=== PATIENT | female | born 1960 | race African-American/Black ===

== ENCOUNTER 2018-03-25 18:16 | Emergency (ER) | payer OTHER ==
--- NOTE | 2018-03-25 18:25 | PDOC ---
Rapid Medical Evaluation Time Seen by Provider: 03/25/18 18:22 Medical Evaluation: Allergies Allergy/AdvReac Type Severity Reaction Status Date / Time No Known Allergies Allergy Verified 03/25/18 18:22 03/25/18 18:22 I have performed a brief in-person evaluation of this patient. The patient presents with a chief complaint of: chest pain and cough Pertinent physical exam findings: Lungs CTAB. RRR. No m/r/g. I have ordered the following: labs, urine, cxr, ekg The patient will proceed to the ED for further evaluation. Discharge Disposition - Diagnosis Chest pain - Referrals - Patient Instructions - Post Discharge Activity
[2018-03-25 18:29] VITALS: TEMP 98; BMI 70.4
[2018-03-25 18:50] LABS: BASO % 0.8 % (0-2.0); EOS % 0.6 % (0-4.5); HEMATOCRIT 40.4 % (32.4-45.2); HEMOGLOBIN 13.1 GM/dL (10.7-15.3); LYMPH % 38.1 % (8-40); MCH 28.8 pg (25.7-33.7); MCHC 32.5 g/dl (32.0-36.0); MEAN CELL VOLUME 88.4 fl (80-96); MEAN PLT VOLUME 10.2 fl (7.5-11.1); MONO % 7.1 % (3.8-10.2); NEUT % 53.4 % (42.8-82.8); PLATELET COUNT 276 K/MM3 (134-434); RBC 4.57 M/mm3 (3.60-5.2); RDW 13.7 % (11.6-15.6); WHITE BLOOD COUNT 8.6 K/mm3 (4.0-10.0)
[2018-03-25 19:07] LABS: INR 1.03 (0.82-1.09); PROTHROMBIN TIME (PATIENT) 11.6 SEC (9.7-13.0)
[2018-03-25 20:06] LABS: ALBUMIN 3.6 g/dl (3.4-5.0); ANION GAP 8 (8-16); CALCIUM 8.8 mg/dL (8.5-10.1); CHLORIDE 109 mmol/L (98-107); CO2 27 mmol/L (21-32); CREATININE 0.9 mg/dL (0.55-1.02); GLUCOSE,RANDOM 95 mg/dL (74-106); POTASSIUM 3.8 mmol/L (3.5-5.1); SODIUM 144 mmol/L (136-145); TOT PROT 7.4 g/dl (6.4-8.2)
[2018-03-25 20:31] LABS: ALK PHOS 54 U/L (45-117); BILIRUBIN,TOTAL 0.3 mg/dL (0.2-1.0); BLOOD UREA NITROGEN 20 mg/dL (7-18); SGOT/AST 14 U/L (15-37); SGPT/ALT 24 U/L (12-78)
[2018-03-25] MEDS ORDERED: RANITIDINE HCL 150 MG TABLET (FP) PO ONE (21:29)
--- NOTE | 2018-03-25 21:29 | PDOC ---
History of Present Illness - General History Source: Patient Exam Limitations: No Limitations - History of Present Illness Initial Comments: 03/25/18 23:39 The patient is a 57 year old female with no significant PMH who presents to the emergency department with chest pain since earlier today. The patient describes her chest pain as intermittent . The patient reports that she has been experiencing a persistent cough for 1 week. She states that she brought and took an organic cough syrup earlier today and soon after began to feel ill. She reports associated chills with her symptoms. The patient reports that her cough has been productive with phlegm. She states that her chest pain is present without her cough. The patient reports that she took 2 baby aspirins at 5:45pm today. She denies any other symptoms. She denies any fever, nausea, vomit, diarrhea, constipation or urinary symptoms. She denies any shortness of breath, headache and dizziness or sensory changes. The patient denies any other complaints. It is noted that the patient has a family history of afib(father) and Hypertension, diabetes(mother) PCP: Dr. Gary <Michael Archer - Last Filed: 03/25/18 23:39> <Mirian Anna - Last Filed: 03/26/18 00:23> - General Chief Complaint: Chest Pain Stated Complaint: CHEST PAIN Time Seen by Provider: 03/25/18 18:22 Past History <Michael Archer - Last Filed: 03/25/18 23:39> - Past Medical History COPD: No - Immunization History Immunization Up to Date: Yes - Suicide/Smoking/Psychosocial Hx Smoking History: Never smoked Have you smoked in the past 12 months: No Information on smoking cessation initiated: No Hx Alcohol Use: No Drug/Substance Use Hx: No Substance Use Type: None <Mirian Anna - Last Filed: 03/26/18 00:23> - Past Medical History Allergies/Adverse Reactions: Allergies Allergy/AdvReac Type Severity Reaction Status Date / Time No Known Allergies Allergy Verified 03/25/18 18:22 Home Medications: Ambulatory Orders Benzonatate [Tessalon Pearls -] 200 mg PO TID PRN #12 cap 03/25/18 Lansoprazole [Prevacid -] 30 mg PO ASDIR PRN 03/25/18 Review of Systems - Review of Systems Able to Perform ROS?: Yes Comments:: 03/25/18 23:39 See HPI. All other systems reviewed and unremarkable <Michael Archer - Last Filed: 03/25/18 23:39> *Physical Exam - Vital Signs Last Vital Signs Temp Pulse Resp BP Pulse Ox 98.0 F 78 17 150/96 99 03/25/18 18:23 03/25/18 23:25 03/25/18 21:39 03/25/18 23:25 03/25/18 23:25 - Physical Exam Comments: 03/25/18 23:39 General Physical Exam: NAD EOMI, AUGUSTINE MMM, OP WNL NCAT, no midline cervical tenderness RRR, nl s1/s2, no m/r/g CTABL, no w/r/r Soft, NTND No edema, WWP, no rash Neuro grossly intact, gait WNL, moving all 4 A&O x 3, mood/affect WNL. <Michael Archer - Last Filed: 03/25/18 23:39> - Vital Signs Last Vital Signs Temp Pulse Resp BP Pulse Ox 98.0 F 56 L 18 172/94 100 03/25/18 18:23 03/25/18 19:55 03/25/18 19:55 03/25/18 19:55 03/25/18 19:55 <Mirian Anna - Last Filed: 03/26/18 00:23> Heart Score/ECG Review - History History: Slightly suspicious - Electrocardiogram EKG: Normal - Age Age: 45-65 - Risk Factors Risk Factors Heart Score: No Hx Hypercholesterolemia, No Hx Hypertension, No Hx Diabetes, No Smoking History, No Positive family hx of cardiac disease, No Hx Obesity Based on the list above the patient has:: No risk factors known - Troponin Troponin: </= normal limit - Score Heart Score - Total: 1 - ECG Intrepretation Rhythm: Regular Rhythm - Rexford Rexford: Left Rexford Deviation - P and AR Prominent R with upright T in V1 (true posterior SC): No Delta Wave(s) Present: No WPW: No - QRS Poor R Wave Progression: No Q Wave Present: No - ST and T Early Repolarization: No Non Specific ST-T Wave changes: No Flattened T Waves: No Prolonged Q-T Interval: No - ECG Impressions Normal ECG: Yes Ischemic Changes: No <Mirian Anna Last Filed: 03/26/18 00:23> ED Treatment Course - LABORATORY CBC & Chemistry Diagram: 03/25/18 18:43 03/25/18 19:00 - ADDITIONAL ORDERS Additional order review: Laboratory Results 03/25/18 03/25/18 03/25/18 21:45 19:00 18:43 PT with INR INR Sodium 144 Cancelled Potassium 3.8 Cancelled Chloride 109 H Cancelled Carbon Dioxide 27 Cancelled Anion Gap 8 Cancelled BUN 20 H Cancelled Creatinine 0.9 Cancelled Creat Clearance w eGFR > 60 Cancelled Random Glucose 95 Cancelled Calcium 8.8 Cancelled Magnesium Cancelled Total Bilirubin 0.3 D Cancelled AST 14 L Cancelled ALT 24 Cancelled Alkaline Phosphatase 54 Cancelled Creatine Kinase 179 Cancelled Creatine Kinase Index 0.9 CK-MB (CK-2) 1.75 Troponin I < 0.02 Cancelled Total Protein 7.4 Cancelled Albumin 3.6 Cancelled Urine Color Straw Urine Appearance Clear Urine pH 6.0 Ur Specific [place] 1.009 Urine Protein Negative Urine Glucose (UA) Negative Urine Ketones Negative Urine Blood Negative Urine Nitrite Negative Urine Bilirubin Negative Urine Urobilinogen Negative Ur Leukocyte Esterase Trace Urine WBC (Auto) 6 Urine RBC (Auto) 2 Ur Epithelial Cells Rare Urine Bacteria Rare 03/25/18 18:43 PT with INR 11.60 INR 1.03 Sodium Potassium Chloride Carbon Dioxide Anion Gap BUN Creatinine Creat Clearance w eGFR Random Glucose Calcium Magnesium Total Bilirubin AST ALT Alkaline Phosphatase Creatine Kinase Creatine Kinase Index CK-MB (CK-2) Troponin I Total Protein Albumin Urine Color Urine Appearance Urine pH Ur Specific [place] Urine Protein Urine Glucose (UA) Urine Ketones Urine Blood Urine Nitrite Urine Bilirubin Urine Urobilinogen Ur Leukocyte Esterase Urine WBC (Auto) Urine RBC (Auto) Ur Epithelial Cells Urine Bacteria 03/25/18 18:43 RBC 4.57 MCV 88.4 MCHC 32.5 RDW 13.7 MPV 10.2 Neutrophils % 53.4 Lymphocytes % 38.1 Monocytes % 7.1 Eosinophils % 0.6 Basophils % 0.8 - Medications Given in the ED: ED Medications Discontinued Medications Generic Name Dose Route Start Last Admin Trade Name Freq PRN Reason Stop Dose Admin Acetaminophen 975 mg 03/25/18 23:02 03/25/18 23:25 Tylenol - PO 03/25/18 23:03 975 mg ONCE ONE Administration Sodium Chloride 1,000 mls @ 1,000 mls/hr 03/25/18 21:30 03/25/18 21:51 Normal Saline - IV 03/25/18 22:29 1,000 mls/hr ASDIR STA Administration Ranitidine HCl 150 mg 03/25/18 21:29 03/25/18 21:39 Zantac - PO 03/25/18 21:30 150 mg ONCE ONE Administration <Michael Archer - Last Filed: 03/25/18 23:39> - LABORATORY CBC & Chemistry Diagram: 03/25/18 18:43 03/25/18 19:00 - ADDITIONAL ORDERS Additional order review: Laboratory Results 03/25/18 03/25/18 03/25/18 19:00 18:43 18:43 PT with INR 11.60 INR 1.03 Sodium 144 Cancelled Potassium 3.8 Cancelled Chloride 109 H Cancelled Carbon Dioxide 27 Cancelled Anion Gap 8 Cancelled BUN 20 H Cancelled Creatinine 0.9 Cancelled Creat Clearance w eGFR > 60 Cancelled Random Glucose 95 Cancelled Calcium 8.8 Cancelled Magnesium Cancelled Total Bilirubin 0.3 D Cancelled AST 14 L Cancelled ALT 24 Cancelled Alkaline Phosphatase 54 Cancelled Creatine Kinase 179 Cancelled Creatine Kinase Index 0.9 CK-MB (CK-2) 1.75 Troponin I < 0.02 Cancelled Total Protein 7.4 Cancelled Albumin 3.6 Cancelled 03/25/18 18:43 RBC 4.57 MCV 88.4 MCHC 32.5 RDW 13.7 MPV 10.2 Neutrophils % 53.4 Lymphocytes % 38.1 Monocytes % 7.1 Eosinophils % 0.6 Basophils % 0.8 - RADIOLOGY Chest X-Ray Result: No Infiltrates <Mirian nAna - Last Filed: 03/26/18 00:23> Medical Decision Making - Medical Decision Making 03/25/18 21:27 [id number] no PMHx, noncontributory FHx presnets w/ increased coughing, epig pain, nausea, malaise, intermittnet chest pain since taking a cough suppressant today. Well appearing in ED. HEART score 1 point for age. - basic labs - ekg - cxr - sxs control - DC if all urnemarkable. <Mirian Anna - Last Filed: 03/26/18 00:23> *DC/Admit/Observation/Transfer - Attestations Scribe Attestion: 03/25/18 23:40 Documentation prepared by Michael Archer, acting as medical reception for Mirian Anna MD. <Michael Archer - Last Filed: 03/25/18 23:39> - Discharge Dispostion Decision to Admit order: No <Mirian Anna - Last Filed: 03/26/18 00:23> Diagnosis at time of Disposition: Chest pain, Atypical chest pain - Discharge Dispostion Disposition: HOME Condition at time of disposition: Good - Prescriptions Prescriptions: Benzonatate [Tessalon Pearls -] 200 mg PO TID PRN #12 cap PRN Reason: Cough - Referrals Referrals: Tequila Gary [Primary Care Provider] - - Patient Instructions Printed Discharge Instructions: DI for Cough -- Adult Additional Instructions: Avoid the cough syrup from today. Medications for symptoms as desired. Tylenol if you have a fever rest while you have a cold, drink plenty of fluids. - Post Discharge Activity
[2018-03-25] MEDS ORDERED: SODIUM CHLORIDE 1,000 ML IV STA (21:30)
[2018-03-25] MEDS ORDERED: RANITIDINE HCL 150 MG TABLET (FP) ONE (21:33)
[2018-03-25 21:59] LABS: URINE APPEARANCE CLEAR; URINE BILIRUBIN NEGATIVE (<2.0 mg/dL); URINE BLOOD NEGATIVE (NEGATIVE); URINE COLOR STRAW; URINE GLUCOSE (UA) NEGATIVE (NEGATIVE); URINE KETONE NEGATIVE (NEGATIVE); URINE LEUK ESTERASE TRACE (NEGATIVE); URINE NITRITE NEGATIVE (NEGATIVE); URINE PROTEIN NEGATIVE (NEGATIVE); URINE UROBILINOGEN NEGATIVE mg/dL (0.2-1.0)
[2018-03-25 22:05] LABS: EPI CELLS RARE /HPF (FEW); URINE BACTERIA RARE /hpf (NONE SEEN)
[2018-03-25] MEDS ORDERED: ACETAMINOPHEN 500 MG TABLET (FP) PO ONE (23:02)
[2018-03-25] MEDS ORDERED: ACETAMINOPHEN 325 MG TABLET (FP) ONE (23:18)
[2018-03-25 23:26] VITALS: BP 150/96; PULSE 78
--- NOTE | 2018-03-26 17:50 | EKG ---
Test Reason : Blood Pressure : / mmHG Vent. Rate : 076 BPM Atrial Rate : 076 BPM P-R Int : 184 ms QRS Dur : 086 ms QT Int : 408 ms P-R-T Axes : 057 -38 030 degrees QTc Int : 459 ms NORMAL SINUS RHYTHM LEFT AXIS DEVIATION ABNORMAL ECG WHEN COMPARED WITH ECG OF 07-FEB-2016 09:05, NO SIGNIFICANT CHANGE WAS FOUND Confirmed by JANEE PENA MD ([id number]) on 03/26/2018 5:49:59 PM Referred By: Confirmed By:JANEE PENA MD
== END 2018-03-26 00:56 | disposition home or self-care (01) ==
LOC: JER 18:16
PROC: 3E0337Z Introduction of Electrolytic and Water Balance Substance into Peripheral Vein, Percutaneous Approach (ICD-10-PCS; principal; 2018-03-25)
DX: R07.89 Other chest pain (principal)
CPT/HCPCS: 36415; 71046-TC-FY; 80053; 81003; 81015; 82550; 82553; 84484; 85025; 85610; 87086; 93005; 93010; 99284-25; J7030